=== PATIENT | female | born 1935 | race Caucasian/White ===

== ENCOUNTER 2025-03-19 13:01 | Outpatient (CLI) | payer MEDICARE, SELFPAY ==
--- OUTSIDE RECORDS SUMMARY | 2013-12-12 08:00 | XMS_ITS | Continuity of Care Document ---
Author Organization [facility] [place] [address] [place] [address] Phone Care Team Providers Care Rug Clipper Name Role Phone Sarabjit Murray MD Unavailable Unavailable Allergies, Adverse Reactions, Alerts Substance Reaction Status Criticality codeine Active No Information Medications Medication Instructions Dosage Effective Dates (start - stop) Status Comments BYSTOLIC (unknown strength) take 1 tablet by ORAL route every day Not Available - Active SPIRONOLACTONE (unknown strength) take 1 tablet by ORAL route every day Not Available - Active HYDROCHLOROTHIAZIDE (unknown strength) take 2 capsule by ORAL route every day Not Available - Active TIROSINT (unknown strength) Not Available - Active Procedures Procedure Date Eye Exam & Treatment Visual Field Examination(s) Office/outpatient Visit, Est Visual Field Examination(s) Corneal Pachymetry Eye Exam, New Patient Advance Directives Directive Yes / No Effective Date File Name No Information Encounters Encounter Description Practice Location Reason(s) For Visit Diagnoses Date Provider Providers Copied on Encounter [facility], [address], [place], [place], [id number], [place] tel:[phone] [facility] Professional Glaucoma (chief complaint) Dry eyeNevus of choroidSenile nuclear cataractOptic disc pathological cupping 201 4 Terri Whipple. [address] [facility], [address], [place], [place], [id number], [place]. tel:[phone] Referring Provider: Quinn Miranda, [address] [place] [address], [address]. tel:[phone] Office/outpa tient Visit, Est [facility], [address] [place], [place] [address], [place], [place], [id number], tel:[phone] SEC Man[place]inder [place] Professional No Information Nov-0 3-201 3 Wankum Sarabjit. [address], [id number], [place]. tel:[phone] Referring Provider: Quinn Miranda, [address] [place] [address], [address]. tel:[phone] [facility], [address] [place], [place] [address], [place], [id number], tel:[phone] [facility] Manjinder [place] Professional No Information 0 1-201 3 Wankum Sarabjit. [address] [facility] [place], [id number], [place]. tel:[phone] Referring Provider: Quinn Miranda, [address] [place] [address], [address]. tel:[phone] [facility], [address] [place], [place] [address], [place], [place], [id number], tel:[phone] SEC Manjinder [place] Professional No Information Aug-2 2-201 3 Wankum Sarabjit. [address] [facility] [place], [address], [place]. tel:[phone] Family History Family Member Type Diagnosis Age At Onset No Information Payers Payer name Insurance type Covered democrat ID Authormikea meek(s) [place] [id number] [facility] [id number] Social History Type Description Quantity Date Captured Comments Alcohol Use Details Unknown Caffeine Use Details Unknown Tobacco Use Status No Information Smoking Status No Information Sex Female Chief Complaint And Reason For Visit From encounter dated '12/12/2013 13:00'. Glaucoma (chief complaint) Reason For Referral Reason For Referral No Information History Of Present Illness Encounter Date Complaint History Of Prese nt Illness Glaucoma Patient presents for a complete IOP check with a VF. Patient uses AT prn. Patient doesn't think she sees as well. Functional Status Date Functional Assessmen t No Information Instructions Date Instruction Additional Infor marlysulaiman - RTC in 6 months fo r an IOP checkand OCT ON Related to See list of assessments above - Discussed cataract s - no treatment required at this time. Nevus OS stable. Suspicious optic nerve - will continue to monitor IOP. RTC in 6 months for an IOP checkand OCT ON. Educational materials provided:Cataract. Related to See list of assessments above - 1yr with vf cataracts cupping but nl iop a nd thick pachs and nl vf choroidal nevus os - rtc in 2mths for vf and pachs vit floaters - mal d symptoms tear/detach cupping cataracts - no tx needed choroidal nevus os Assessments Type Assessment Date assessment Dry eye assessment Nevus of choroid assessment Senile nuclear cataract 014 assessment Optic disc pathological cupping Patient Care Teams Name Effective Dates (start - stop) Status Members No Information
--- NOTE | ~2025-03-19 | XR_ITS ---
EXAMINATION: XR foot LT min 3V, 03/19/2025 13:08 CDT HISTORY: M79.672 - Pain in left foot COMPARISON: No comparisons available. Findings: No acute fracture or malalignment. No significant degenerative changes. Soft tissues unremarkable. Impression: No acute fracture or malalignment. Reviewed, dictated and finalized at location P. Impression: No acute fracture or malalignment.
--- OUTSIDE RECORDS SUMMARY | 2025-03-19 13:23 | XMS_ITS ---
Author Organization [facility] Address [address] [place] [address] Care Team Providers Care Artificial Intelligence Specialist Name Role Phone Zuly Fofana MD Unavailable [phone] Celeste TalbertM Unavailable [phone] He Lemus MD Unavailable [phone] Sameer Warner MD Unavailable [phone] Anita Beck MD Primary Care Prov ider Active Problems Problem Noted Date Diagnosed Date Encounter to establish care with new provider Assessment & Plan (11/09/2024 2:36 PM CDT): -Patient was previously seen Dr. Stevens, however is establishing care with new physician today. Arthritis of left foot 12/30/2023 Assessment & Plan (06/07/2024 4:11 PM ACCOUNTS RECEIVABLE ACCOUNTANT): - s/p MRI of left foot on 09/2023, initially saw Dr. Solis and then saw Dr. Talbert, told arthritis and got injections from time to time MRI Left foot wo contrast 09/2023 IMPRESSION: No evidence of a stress fracture. Moderate arthritic changes of the foot most pronounced at the navicular-cuneiform, medial cuneiform-intermediate, intermediate cuneiform-lateral cuneiform and middle cuneiform-2nd metatarsal base. Mild nonspecific subcutaneous edema dorsal aspect of the forefoot. Assessment & Plan (12/30/2023 2:54 PM CDT): - s/p MRI of left foot on 09/2023, initially saw Dr. oSlis and then saw Dr. Talbert, told arthritis and got injection which has resolved the pain MRI Left foot wo contrast 09/2023 IMPRESSION: No evidence of a stress fracture. Moderate arthritic changes of the foot most pronounced at the navicular-cuneiform, medial cuneiform-intermediate, intermediate cuneiform-lateral cuneiform and middle cuneiform-2nd metatarsal base. Mild nonspecific subcutaneous edema dorsal aspect of the forefoot. Stage 3b chronic kidney disease (CKD) 12/30/2023 Overview (06/07/2024): Follows with Nephrology Assessment & Plan (06/07/2024 4:09 PM ACCOUNTS RECEIVABLE ACCOUNTANT): - chronic condition, stable - avoid NSAIDs, Bactrim, Contrast, PPI - continue with low phos diet and low K diet - renally dose medications - hypertension is well controlled - establish with Nephrology Dr. Warner Lab Results Component Value Date CREATININE 1.43 (H) 04/10/2024 CREATININE 1.54 (H) 03/08/2024 CREATININE 1.39 (H) 01/12/2024 CREATININE 1.43 (H) 12/28/2023 Assessment & Plan (12/30/2023 4:21 PM CDT): - chronic condition - avoid NSAIDs, Bactrim, Contrast, PPI - continue with low phos diet and low K diet - renally dose medications - establish with Nephrology Dr. Warner Lab Results Component Value Date CREATININE 1.43 (H) 12/28/2023 CREATININE 1.37 (H) 11/25/2023 CREATININE 1.29 (H) 08/25/2023 CREATININE 1.37 (H) 07/01/2023 Renal cyst 09/17/2021 Assessment & Plan (12/30/2023 2:55 PM CDT): - noted on chart review - saw Urology and had MRI in past as shown below US renal 11/2022 IMPRESSION: Slightly small echogenic kidneys evidence of medical renal disease. Septated right upper pole renal cystic lesion 1.5 cm, previously 1.6 cm. Continued follow-up recommended. Echogenic focus lower pole right kidney 0.3 cm likely a calculus. MRI ABDOMEN W WO CONTRAST 01/2022 IMPRESSION: 1. Couple of right renal cystic lesions demonstrating heterogeneous hypointense T1 signal on the precontrast sequence and thin enhancing septations on the postcontrast sequences, and therefore concerning for mildly complicated renal cysts with proteinaceous/hemorrhagic debris and thin enhancing septations. Bosniak 2 F. follow-up MRI with renal protocol in 6 months is recommended to assess for stability as clinically indicated. 2. 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 Asymptomatic microscopic hematuria 09/17/2021 Low bone mass 10/08/2020 Assessment & Plan (06/07/2024 4:04 PM ACCOUNTS RECEIVABLE ACCOUNTANT): - chronic condition, stable status - on vitamin D supplementation - has been on reclast since 09/03/2018 - did it yearly until 10/2022 - never had a fracture - will likely start therapy next year - last DEXA 06/13 - lo wbon emass only -1.4, great - continue current management Assessment & Plan (12/30/2023 2:51 PM CDT): - chronic condition, stable status - on vitamin D supplementation - has been on reclast since 09/03/2018 - did it yearly until 10/2022 - never had a fracture - will likely start therapy next year - last DEXA was in 05/2022 - gets it every 2 years - continue current management Personal history of colonic polyps 07/09/2016 Mild cognitive disorder 07/09/2016 History of gout 01/10/2014 Assessment & Plan (11/09/2024 2:36 PM CDT): -Chronic, stable condition. Patient utilizes allopurinol and is in need of a refill. Will refill today. Assessment & Plan (06/07/2024 4:10 PM ACCOUNTS RECEIVABLE ACCOUNTANT): - hx of gout, well controlled - family hx of gout in father and brother - currently on Allopurinol 100 mg daily - most recent lab as shown below - continue current management Lab Results Component Value Date URICACID 4.4 12/28/2023 Assessment & Plan (12/30/2023 4:24 PM CDT): - hx of gout, well controlled - family hx of gout in father and brother - currently on Allopurinol 100 mg daily - recheck labs, order placed with results as shown below - continue current management Lab Results Component Value Date URICACID 4.4 12/28/2023 Chronic lymphoid leukemia in remission 4 Overview (06/07/2024): Follows with Hematology/Oncology Assessment & Plan (06/07/2024 4:09 PM ACCOUNTS RECEIVABLE ACCOUNTANT): - chronic, followed by Hematology/Oncology Dr. Lemus - having history of CLL since 2000 requiring no treatment. 06/24/2004 BMBx [place] [address] Barahona - monitored regularly by hematology - Continue current management Lab Results Component Value Date WBC 10.3 (H) 03/08/2024 HGB 12.5 03/08/2024 HCT 37.5 03/08/2024 MCV 96.9 (H) 03/08/2024 LABPLAT 229 03/08/2024 Assessment & Plan (12/30/2023 4:25 PM CDT): - chronic, followed by Hematology/Oncology Dr. Lemus - having history of CLL since 2000 requiring no treatment. 06/24/2004 BMBx [place] [address] Barahona - monitored regularly by hematology - Continue current management Lab Results Component Value Date WBC 12.4 (H) 12/28/2023 HGB 12.7 12/28/2023 HCT 37.6 12/28/2023 MCV 96.4 12/28/2023 LABPLAT 243 12/28/2023 Benign hypertension with CKD (chronic kidney disease) stage III 11/04/2013 Assessment & Plan (06/07/2024 4:06 PM ACCOUNTS RECEIVABLE ACCOUNTANT): Blood Pressure Management BP Readings from Last 3 Encounters: 06/07/24 130/80 03/08/24 125/65 12/30/23 130/70 Chronic condition Status - is adequately controlled. Current medications are: Losartan 50 mg daily, spironolactone 25x4 mg daily, indapamide 1.25 mg daily, --> change to Spironolactone 50 mg BID when time for refill Patient is compliant with medications. Patient denies any side effects or adverse side effects from the medication/s. Follow a low salt diet Monitor blood pressure regularly at home Continue current management unless change made above The ASCVD Risk score (Debi ADAM, et al., 2019) failed to calculate for the following reasons: The 2019 ASCVD risk score is only valid for ages 40 to 79 Lab Results Component Value Date LDLCALC 71 08/25/2023 Lab Results Component Value Date GLUCOSE 91 04/10/2024 CALCIUM 9.6 04/10/2024 SODIUM 133 (L) 04/10/2024 POTASSIUM 4.6 04/10/2024 CO2 19 (L) 04/10/2024 CHLORIDE 101 04/10/2024 BUNSER 35 (H) 04/10/2024 CREATININE 1.43 (H) 04/10/2024 Assessment & Plan (12/30/2023 2:44 PM CDT): Blood Pressure Management BP Readings from Last 3 Encounters: 12/30/23 130/70 09/03/23 120/59 04/20/23 130/78 Chronic condition Status - is adequately controlled. Current medications are: Losartan 50 mg daily, spironolactone 25x4 mg daily, indapamide 1.25 mg daily, Patient is compliant with medications. Patient denies any side effects or adverse side effects from the medication/s. Follow a low salt diet Monitor blood pressure regularly at home Continue current management unless change made above The ASCVD Risk score (Debi ADAM, et al., 2019) failed to calculate for the following reasons: The 2019 ASCVD risk score is only valid for ages 40 to 79 Lab Results Component Value Date LDLCALC 71 08/25/2023 Lab Results Component Value Date GLUCOSE 94 12/28/2023 CALCIUM 10.9 (H) 12/28/2023 SODIUM 136 12/28/2023 POTASSIUM 4.3 12/28/2023 CO2 22 12/28/2023 CHLORIDE 102 12/28/2023 BUNSER 37 (H) 12/28/2023 CREATININE 1.43 (H) 12/28/2023 Acquired hypothyroidism 11/04/2013 Assessment & Plan (06/07/2024 3:59 PM ACCOUNTS RECEIVABLE ACCOUNTANT): - chronic condition, stable status - currently on Levothyroxine 50 mcg daily - never had surgery, radiation - continue current management - recheck labs, order placed Lab Results Component Value Date TSH 2.98 08/25/2023 Assessment & Plan (12/30/2023 2:45 PM CDT): - chronic condition, stable status - currently on Levothyroxine 50 mcg daily - never had surgery, radiation - continue current management - recheck labs, order placed Lab Results Component Value Date TSH 2.98 08/25/2023 Current Treatment and Therapy Plans No current plan information found. Past Treatment and Therapy Plans Resolved Problems Problem Noted Date Diagnosed Date Resolved Date Urinary tract infection without hematuria 09/17/2021 12/30/2023 Nonspecific abnormal finding in stool contents 10/03/2018 12/30/2023 Overview (10/03/2018): Added automatically from request for surgery [id number] Calculus of gallbladder with out cholecystitis without obstruction 09/07/2017 12/30/2023 Overview (09/07/2017): Added automatically from request for surgery [id number] Assessment & Plan (09/17/2017 3:58 PM CDT): The procedure along with the risks and benefits were explained to the patient to which she agreed. Will plan for lap frederick. Healthcare maintenance 01/13/201712/29 Medication management 01/13/20172023 Hypertensive CKD (chronic kidney disease) 01/13/2017 12/30/2023 Osteopenia 07/09/2016 12/30/2023 Osteoarthritis of knee 07/09/201612/29 Abnormal findings on diagnos tic imaging of breast 11/28/2014 12/30/2023 Disorder of bone and cartilage 11/04/2013 12/30/2023
--- OUTSIDE RECORDS SUMMARY | 2025-03-19 13:23 | XMS_ITS | Encounter Summary ---
Author Organization [facility] Address [address] [place] [address] Care Team Providers Care Christmas Bell Ringer Name Role Phone Quinn Savage MD Primary Care Provider + Zuly Fofana MD Unavailable [phone] Shiva Stevens MD Primary Care Provider Celeste Talbert DPM Unavailable [phone] He Lemus MD Unavailable [phone] Sameer Warner MD Unavailable [phone] Anita Beck MD Primary Care Prov ider Reason for Visit * Reason Onset Date Comments Scheduling Appointments 01/31/2020 Called f or DEXA appointment Encounter Details Date Type Department Care Team (Late st Contact Info) Description 01/31/2020 Telephone [facility] [address] [place] [phone] Sara Baires RT Scheduling Appointments (Called for DEXA appointment) Social History Tobacco Use Types Packs/Day Years Used Date Smoking Tobacco: Never Smokeless Tobacco: Never Alcohol Use Standard Drinks/Week Comments No 0 (1 standard drink = 0.6 oz pur e alcohol) Comments No Sex and Gender Information Value Date Recorded Sex Assigned at Not on file Legal Sex Female 11:51 PM AUDOGRAPH OPERATOR Gender Identity Not on file Sexual Orientation Not on file Occupation Industry Job Start Date Job End Date N/A Not on file Not on file Not on file documented as of this encounter Plan of Treatment Not on file documented as of this encounter Visit Diagnoses Not on filedocumented in this encounter Additional Health Concerns Infection Onset Date Last Indicated Resolved Time COVID: Suspected 07/04/2024 07/04/2024 07/04/2024 11:01 AM AUDOGRAPH OPERATOR documented as of this encounter Care Teams Christmas Bell Ringer Relationship Specialty Start Date End Date Quinn Savage MD [address] [place] [address] PCP - General 09/18/16 12/29/23 Shiva Stevens MD [address] [facility] [address] [place] [address] PCP - General Family Medicine 12/30/23 11/08/24 Anita Beck MD [address] [place] [address] [address] [place] [address] PCP - General Family Medicine 11/09/24 04/24/25 Zuly Fofana MD [address] [facility] [address] [place] [address] Referring Physician Dermatology 12/30/23 Celeste Talbert DPM [address] [place] [address] [id number] Consulting Physician Foot and Ankle Surg 12/30/23 He Lemus MD [address] [place] [address] [address] [place] [address] Consulting Physician Hematology and Oncology 12/30/23 Sameer Warner MD [address] [place] [address] [address] [place] [address] Consulting Physician Nephrology 12/30/23 documented as of this encounter
--- OUTSIDE RECORDS SUMMARY | 2025-03-19 13:23 | XMS_ITS | Clinical Summary ---
Author Organization [facility] Address [address] [place] [address] Phone Care Team Providers Care Academic Vice President Name Role Phone Unavailable Primary Care Provider Unavailabl e Social History Tobacco Use Types Packs/Day Years Used Date Smoking Tobacco: Never Assessed Comments Unknown Sex and Gender Information Value Date Recorded Sex Assigned at Not on file Legal Sex Female 4:16 AM PEG DRIVER Gender Identity Not on file Sexual Orientation Not on file Plan of Treatment Health Maintenance Due Date Last Done Comments DTAP/TDAP/TD VACCINES (1 - Tdap) 1955 PNEUMOCOCCAL VACCINE 50+ YEARS (1 of 1 - PCV) 04/09/19 86 ZOSTER VACCINE (1 of 2) 1986 OSTEOPOROSIS SCREENING 2001 RSV VACCINE (60+ or ) (1 - 1-dose 75+ series) 2011 INFLUENZA VACCINE (#1) 2025 Insurance MEDICARE PART A AND B [employer] PPO [facility]
--- OUTSIDE RECORDS SUMMARY | 2025-03-19 13:23 | XMS_ITS | Encounter Summary ---
Author Organization [facility] Address [address] [place] [address] Phone Care Team Providers Care Registration Clerk Name Role Phone Quinn Savage MD Primary Care Provider + Zuly Fofana MD Unavailable [phone] Shiav Stevens MD Primary Care Provider Celeste TalbertM Unavailable [phone] He Lemus MD Unavailable [phone] Sameer Warner MD Unavailable [phone] Anita Beck MD Primary Care Prov ider Encounter Details Date Type Department Care Team (Late st Contact Info) Description 07/08/2017 Orders Only [facility] Provider, MD Marcia [address] [place] [id number] Social History Tobacco Use Types Packs/Day Years Used Date Smoking Tobacco: Never Smokeless Tobacco: Never Alcohol Use Standard Drinks/Week Comments No 0 (1 standard drink = 0.6 oz pur e alcohol) Comments Unknown Sex and Gender Information Value Date Recorded Sex Assigned at Not on file Legal Sex Female 11:51 PM CORK INSULATION SETTER Gender Identity Not on file Sexual Orientation Not on file documented as of this encounter Plan of Treatment Not on file documented as of this encounter Procedures Procedure Name Priority Date/Time Associated Diagnosis Comments DISCHARGE LABORATORY CUMULATIVE REPORT 07/08/2017 12:00 AM CORK INSULATION SETTER documented in this encounter Results * DISCHARGE LABORATORY CUMULATIVE REPORT (07/08/2017 12:00 AM CORK INSULATION SETTER) Narrative 07/08/2017 12:00 AM CORK INSULATION SETTER Ordered by an unspecified provider. us Historical Provider LAB BLOOD ORDERABLES Nicol l Result documented in this encounter Visit Diagnoses Not on filedocumented in this encounter Additional Health Concerns Infection Onset Date Last Indicated Resolved Time COVID: Suspected 07/04/2024 07/04/2024 07/04/2024 11:01 AM CORK INSULATION SETTER documented as of this encounter Care Teams Registration Clerk Relationship Specialty Start Date End Date Quinn Savage MD [address] [place] [address] PCP - General 09/18/16 12/29/23 Shiva Stevens MD [address] [facility] [address] [place] [address] PCP - General Family Medicine 12/30/23 11/08/24 Anita Beck MD [address] [place] [address] [address] [place] [address] PCP - General Family Medicine 11/09/24 04/24/25 Zuly Fofana MD [address] [facility] [address] [place] [address] Referring Physician Dermatology 12/30/23 Celeste Talbert DPM [address] [place] [address] Consulting Physician Foot and Ankle Surg 12/30/23 He Lemus MD [address] [facility] [address] [place] [address] Consulting Physician Hematology and Oncology 12/30/23 Sameer Warner MD [address] [facility] [address] [address] Consulting Physician Nephrology 12/30/23 documented as of this encounter
--- OUTSIDE RECORDS SUMMARY | 2025-03-19 13:23 | XMS_ITS | Encounter Summary ---
Author Organization [employer] Address 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
--- OUTSIDE RECORDS SUMMARY | 2025-03-19 13:23 | XMS_ITS | Clinical Summary ---
Author Organization [facility] Address [address] [place] [id number] Care Team Providers Care Traffic Safety Administrator Name Role Phone Zuly Fofana MD Unavailable [phone] Celeste TalbertM Unavailable [phone] He Lemus MD Unavailable [phone] Sameer Warner MD Unavailable [phone] Anita Beck MD Primary Care Prov ider Allergies Active Allergy Reactions Criticality Noted Date Comments Codeine Other (See comments) Low Causes Numbness, Medications cholecalciferol (VITAMIN D-3) 2,000 unit tablet 1 tablet (2,000 Units total) daily Active ketoconazole (NIZORAL) 2 % cream Apply under breasts BID 60 g 3 04/26/2019 Active hydrocortisone 2.5 % cream Apply under breasts BID 28 g 3 04/26/2019 Active cyanocobalamin (Vitamin B-12) 100 mcg tabletIndicatio ns:Prevention of Vitamin B12 Deficiency Take 1 tablet (100 mcg total) by mouth daily Active d-mannose powder Take by mouth Active levothyroxine (SYNTHROID) 50 mcg tablet Take 1 tablet (50 mcg total) by mouth daily 90 tablet 3 02/24/2024 Active albuterol-budes onide 90-80 mcg/actuation HFA aerosol inhaler Inhale 2 puffs every 6 (six) hours as needed (cough attack) 10.7 g 09/05/2024 Active budesonide-form oteroL (SYMBICORT) 160-4.5 mcg/actuation inhaler Inhale 2 puffs 2 (two) times a day for 14 days Rinse mouth with water after use. Do not swallow. 10.2 g 09/08/2024 Active allopurinoL (ZYLOPRIM) 100 mg tablet Take 1 tablet (100 mg total) by mouth daily 90 tablet 3 11/15/2024 Active indapamide (LOZOL) 1.25 mg tablet Take 1 tablet (1.25 mg total) by mouth every morning 90 tablet 2 12/20/2024 Active spironolactone (ALDACTONE) 50 mg tablet Take 1 tablet (50 mg total) by mouth 2 (two) times a day 180 tablet 1 01/19/2025 Active losartan (COZAAR) 50 mg tablet TAKE 1 TABLET BY MOUTH EVERY DAY 90 tablet 1 01/26/2025 Active Active Problems Problem Noted Date Diagnosed Date Encounter to establish care with new provider Assessment & Plan (11/09/2024 2:36 PM CDT): -Patient was previously seen Dr. Stevens, however is establishing care with new physician today. Arthritis of left foot 12/30/2023 Assessment & Plan (06/07/2024 4:11 PM DEALER SALES MANAGER): - s/p MRI of left foot on [...] Nephrology Assessment & Plan (06/07/2024 4:09 PM DEALER SALES MANAGER): - chronic condition, stable - avoid NSAIDs, [...] 10/08/2020 Assessment & Plan (06/07/2024 4:04 PM DEALER SALES MANAGER): - chronic condition, stable status - on [...] today. Assessment & Plan (06/07/2024 4:10 PM DEALER SALES MANAGER): - hx of gout, well controlled - [...] Hematology/Oncology Assessment & Plan (06/07/2024 4:09 PM DEALER SALES MANAGER): - chronic, followed by Hematology/Oncology Dr. Lemus [...] 11/04/2013 Assessment & Plan (06/07/2024 4:06 PM DEALER SALES MANAGER): Blood Pressure Management BP Readings from Last [...] 11/04/2013 Assessment & Plan (06/07/2024 3:59 PM DEALER SALES MANAGER): - chronic condition, stable status - currently [...] Results Component Value Date TSH 2.98 08/25/2023 Resolved Problems Problem Noted Date Diagnosed Date Resolved Date Urinary tract infection without hematuria 09/17/2021 12/30/2023 Nonspecific abnormal finding in stool contents 10/03/2018 12/30/2023 Overview (10/03/2018): Added automatically from request for surgery [id number] Calculus of gallbladder with out cholecystitis without obstruction 09/07/2017 12/30/2023 Overview (09/07/2017): Added automatically from request for surgery [id number] Assessment & Plan (09/17/2017 3:58 PM CDT): [...] Disorder of bone and cartilage 11/04/2013 12/30/2023 Encounters Date Type Department Care Team Description 02/13/2025 Telephone [facility] at [address] [place] [address] Anita Beck MD 01/17/2025 Telephone [facility] at [address] [place] [address] Anita Beck MD Med Refill 12/21/2024 11:57 AM CDT - 12/21/2024 11:59 PM CDT Hospital Encounter [facility] at [address] [address] Acute left-sided low back pain without sciatica Discharge Disposition: Discharge to home or self care 12/21/2024 11:37 AM CDT - 12/21/2024 11:59 PM CDT Hospital Encounter [address] [address] Low back pain, unspecified back pain laterality, unspecified chronicity, unspecified whether sciatica present; UTI symptoms Discharge Disposition: Discharge to home or self care 12/21/2024 11:15 AM CDT Office Visit [facility] at [address] [place] [phone] Kortney Arnett NP Low back pain, unspecified back pain laterality, unspecified chronicity, unspecified whether sciatica present (Primary Dx); UTI symptoms; Acute left-sided low back pain without sciatica 12/21/2024 Results Follow-Up [facility] at [address] [place] [phone] Kortney Arnett, FORTINO XR Spine Thoracic 3 Vw, XR Spine Lumbar 2 or 3 Views, Urine culture Urine, clean voided from Last 3 Months Immunizations Immunization Administration Dates Next Due Influenza, Quad, Adjuvantate d, Intramuscular 02/20/2020,02/20/2020 Influenza, Quadrivalent, Hig h Dose, Preservative Free, Intrr 04/03/2023,03/17/2022,02/26/2021 Influenza, Split 03/25/2011,03/28/2010 Influenza, Trivalent, High D ose, Split, Preservative Free, Intramuscular 04/13/2017,03/26/2016,04/18/2015,03/28,03/30/2013 Influenza, Trivalent, IM (MDV) 04/16/2009,2007,05/18/2007 Influenza, Unspecified 03/20/2024 Moderna SARS-CoV-2 Monovalen t Vaccination (12+ YRS) 09/03/2020,07/24/2020 Pneumococcal Conjugate PCV 13 07/04/2015 Pneumococcal Polysaccharide PPV23 05/07/2009 Td, adsorbed 08/13/2009 ZOSTER LIVE 06/15/2008 Surgical History Surgery Date Site/Laterality Comments OTHER SURGICAL HISTORY multiple back surgeries HAND SURGERY 06/21/2006 - 06/20/2007 left hand surgery OTHER SURGICAL HISTORY L4-5 laminectomy--- has had total of 3 surgeries, had fusion. CHOLECYSTECTOMY 09/13/2017 Laparoscopic Cholecystectomy OOPHORECTOMY HYSTERECTOMY 06/21/1977 - 06/20/1978 AUB - DENISE-BSO DILATION AND CURETTAGE OF UTERUS x 3, AUB EXPLORATORY LAPAROTOMY AUB - COLONOSCOPY 08/02/2012 POLYPECTOMY APPENDECTOMY SPINE SURGERY Medical History Medical History Date Comments Hx Other Medical 01-ONC Hx Other Medical hyperplastic po lyps ' Hx Other Medical 02-NECKTIE TURNER Hx Other Medical 2008 + [place] (DS) Medication monitoring encounter PONV (postoperative nausea and vomiting) Hypertension Hypothyroidism CLL (chronic lymphocytic leukemia) Gout Colon polyp Cataract Chronic kidney disease Arthritis Family History Medical History Relation Name Comments Alzheimer's disease Brother 1 Adriel Guy Colon cancer Brother 1 Adriel Guy Cancer -colon ; Cancer Brother 2 Jose Guy Heart attack Brother 2 Jose Guy Myocardial infarction; Arthritis Father Cristine Guy Heart attack Father Cristine Guy Heart disease Father Cristine Guy Heart disease; Hypertension Father Cristine Guy Hypertension; Breast cancer Neg Hx Ovarian cancer Neg Hx Thyroid cancer Neg Hx Relation Name Status Comments Brother 1 Adriel Guy Brother 2 Jose Guy Father Cristine Guy (Age 93) Mother (Age 98) Social History Tobacco Use Types Packs/Day Years Used Date Smoking Tobacco: Never Smokeless Tobacco: Never Tobacco Cessation:Counseling Given: Not Answered Alcohol Use Standard Drinks/Week Comments No 0 (1 standard drink = 0.6 oz pur e alcohol) AUDIT-C Answer Date Recorded Q1: How often do you have a drink containing alcohol? Never 09/05/2024 Q2: How many drinks containi ng alcohol do you have on a typical day when you are drinking? Patient does not drink Q3: How often do you have si x or more drinks on one occasion? Never 09/05/2024 PHQ-2 Answer Date Recorded PHQ-2 Total Score (If total score is 3 or more points, staff should administer the PHQ-9) 0 11/09/2024 Comments No Sex and Gender Information Value Date Recorded Sex Assigned at Not on file Legal Sex Female 11:51 PM DEALER SALES MANAGER Gender Identity Not on file Sexual Orientation Not on file Occupation Industry Job Start Date Job End Date N/A Not on file Not on file Not on file Obstetrics History Para Term AB IAB SAB Ectopic Multiple Livin g Live Births 2 2 2 Date Outcome GA Total Labor Labor/2nd/3rd Weight Sex Type Anes PTL Priyanka A1 A5 Name Clin Term Term Last Filed Vital Signs Vital Sign Reading Time Taken Comments Blood Pressure 120/60 12/21/2024 11:12 AM CDT Pulse 105 12/21/2024 11:12 AM CDT Temperature 37.2 C (99 F) 12/21/2024 11:12 AM CDT Respiratory Rate 20 12/21/2024 11:12 AM CDT Oxygen Saturation 97% 12/21/2024 11:12 AM CDT Inhaled Oxygen Concentration - - Weight 64 kg (141 lb) 12/21/2024 11:12 AM CDT Height 157.5 cm (5' 2) 12/21/2024 11:12 AM CDT Body Mass Index 25.79 12/21/2024 11:12 AM CDT Plan of Treatment Health Maintenance Due Date Last Done Comments Hepatitis B Screening 1953 Well Visit 65+ 2001 Zoster Vaccine (1 of 2) 08/10/2008 06/15/2008 DTaP/Tdap/Td Vaccine (1 - Tdap) 08/14/2009 0 Colon Cancer Screening-Colonoscopy 11/02/2023 11/01/2018, 08/02/2012, 08/02/2012, Additional history exists Covid-19 Vaccine (6 - 2024-2 6 season) 2025 08/12/2022, 12/19/2021, 04/24/2021, Additional history exists Influenza Vaccine (#1) 2025 , 03/20/2024, 04/03/2023, Additional history exists Breast Cancer Screening-Mammogram 05/31/2025 05/31/2024, 04/05/2023, 04/03/2022, Additional history exists Fall Risk Assessment 07/04/2025 07/04/2024, 06/07/2024, 12/30/2023, Additional history exists Depression Screening 11/09/2025 11/09/2024, 07/04/2024, 06/07/2024, Additional history exists Osteoporosis Screening-Bone Density Scan 05/31/2026 05/31/2024, 02/01/2020, 07/15/2015 Pneumococcal vaccine 65+ Completed 07/04/2015, 04/21 Colon Cancer Screening-CT Colonography Discontinued 11/01/2018, 08/02/2012, 08/02/2012, Additional history exists Colon Cancer Screening-DNA Stool Discontinued 11/01/2018, 08/02/2012, 08/02/2012, Additional history exists Colon Cancer Screening-FIT Discontinued 11/01, 08/02/2012, 08/02/2012, Additional history exists Colon Cancer Screening-Sigmoidoscopy Discontinued 11/01/2018, 08/02/2012, 08/02/2012, Additional history exists Procedures Procedure Name Priority Date/Time Associated Diagnosis Comments XR SPINE LUMBAR 2 OR 3 VIEWS Schedule JUDITH, Read JUDITH (Appt Today, Awaiting Results) 12/21/2024 12:22 PM CDT Acute left-sided low back pain without sciatica XR SPINE THORACIC 3 VIEWS Schedule JUDITH, Read JUDITH (Appt Today, Awaiting Results) 12/21/2024 12:22 PM CDT Acute left-sided low back pain without sciatica URINE CULTURE Routine 12/21/2024 11:37 AM CDT Low back pain, unspecified back pain laterality, unspecified chronicity, unspecified whether sciatica present UTI symptoms POCT URINALYSIS DIPSTICK Routine 12/21/2024 11:33 AM CDT Low back pain, unspecified back pain laterality, unspecified chronicity, unspecified whether sciatica present DEXA AXIAL SKELETON BONE DENSITY 1 OR MORE SITES Schedule Routine, Read Routine (OP Routine) 05/31/2024 10:57 AM DEALER SALES MANAGER Age related osteoporosis, unspecified pathological fracture presence SCREENING MAMMOGRAM BILATERAL W RENITA Schedule Routine, Read Routine (OP Routine) 05/31/2024 10:51 AM DEALER SALES MANAGER Encounter for screening mammogram for malignant neoplasm of breast COLONOSCOPY 11/01/2018 9:56 AM CDT from Last 3 Months or Most Recently Relevant to Health Maintenance Results * XR Spine Lumbar 2 or 3 Views (12/21/2024 12:22 PM CDT) Anatomical Region Laterality Modality Spine N/A Computed Radiogr aphy 12/21/2024 3:02 PM CDT Narrative 12/21/2024 3:07 PM CDT EXAM DESCRIPTION: 1. XR SPINE LUMBAR 2 OR 3 VIEWS; XR SPINE THORACIC 3 VIEWS REASON FOR STUDY: Left-sided back Left sided mid back pain x 3 days Pain is worse when taking in a deep breath NKI Hx of 3 prior back surgeries ; FINDINGS: Three views lumbar spine and three views thoracic spine submitted with comparison 09/05/2024, 03/14/2019. Thoracic spine: No acute fracture. 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 Arterial atherosclerosis is present. Lumbar spine: No acute fracture. Moderate rotary dextroscoliosis of the lumbar spine. L4-L5 combined anterior posterior spinal fusion is present. Severe T12-L4 and L5-S1 degenerative disc disease. Multilevel lumbar facet osteoarthritis. Surgical clips are present. IMPRESSION: 1. 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 2. L4-L5 combined anterior posterior spinal fusion. 3. Severe T12-L4 and L5-S1 degenerative disc disease with multilevel lumbar facet osteoarthritis. THIS IS AN ELECTRONICALLY VERIFIED FINAL REPORT 12/21/2024 3:07 PM - Electronically signed by Ricky House M.D. MF: [email or web address] Report ID: [id number] Reading Location: [id number] Procedure Note Ricky House MD - 12/21/2024 EXAM DESCRIPTION: 1. XR SPINE LUMBAR 2 OR 3 VIEWS; XR SPINE THORACIC 3 VIEWS REASON FOR STUDY: Left-sided back Left sided mid back pain x 3 days Pain is worse when taking in a deepbreath NKI Hx of 3 prior back surgeries ; FINDINGS: Three views lumbar spine and three views thoracic spine submitted with comparison 09/05/2024, 03/14/2019. Thoracic spine: No acute fracture. 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 Arterial atherosclerosis is present. Lumbar spine: No acute fracture. Moderate rotary dextroscoliosis of the lumbar spine. L4-L5 combined anterior posterior spinal fusion is present. Severe [id number]-[id number] L5-S1 degenerative disc disease. Multilevel lumbar facet osteoarthritis. Surgical clips are present. IMPRESSION: 1. Moderate to severe multilevel midthoracic degenerative discdisease. 2. L4-L5 combined anterior posterior spinal fusion. 3. Severe T12-L4 and L5-S1 degenerative disc disease with multilevellumbar facet osteoarthritis. THIS IS AN ELECTRONICALLY VERIFIED FINAL REPORT 12/21/2024 3:07 PM - Electronically signed by Ricky House M.D. MF: [email or web address] Report ID: [id number] Reading Location: [place] [address] Kortney Arnett NP IMG XR PROCEDURES Final Re sult * XR Spine Thoracic 3 Vw (12/21/2024 12:22 PM CDT) Anatomical Region Laterality Modality Spine N/A Computed Radiogr aphy 12/21/2024 3:02 PM CDT Narrative 12/21/2024 3:07 PM CDT EXAM DESCRIPTION: 1. XR SPINE LUMBAR 2 OR 3 VIEWS; XR SPINE THORACIC 3 VIEWS REASON FOR STUDY: Left-sided back Left sided mid back pain x 3 days Pain is worse when taking in a deep breath NKI Hx of 3 prior back surgeries ; FINDINGS: Three views lumbar spine and three views thoracic spine submitted with comparison 09/05/2024, 03/14/2019. Thoracic spine: No acute fracture. 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 Arterial atherosclerosis is present. Lumbar spine: No acute fracture. Moderate rotary dextroscoliosis of the lumbar spine. L4-L5 combined anterior posterior spinal fusion is present. Severe T12-L4 and L5-S1 degenerative disc disease. Multilevel lumbar facet osteoarthritis. Surgical clips are present. IMPRESSION: 1. 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 2. L4-L5 combined anterior posterior spinal fusion. 3. Severe T12-L4 and L5-S1 degenerative disc disease with multilevel lumbar facet osteoarthritis. THIS IS AN ELECTRONICALLY VERIFIED FINAL REPORT 12/21/2024 3:07 PM - Electronically signed by Ricky REED: DEREK Report ID: [id number] Reading Location: [id number] Procedure Note Ricky House MD - 12/21/2024 EXAM DESCRIPTION: 1. XR SPINE LUMBAR 2 OR 3 VIEWS; XR SPINE THORACIC 3 VIEWS REASON FOR STUDY: Left-sided back Left sided mid back pain x 3 days Pain is worse when taking in a deepbreath NKI Hx of 3 prior back surgeries ; FINDINGS: Three views lumbar spine and three views thoracic spine submitted with comparison 09/05/2024, 03/14/2019. Thoracic spine: No acute fracture. 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 Arterial atherosclerosis is present. Lumbar spine: No acute fracture. Moderate rotary dextroscoliosis of the lumbar spine. L4-L5 combined anterior posterior spinal fusion is present. Severe [id number] L5-S1 degenerative disc disease. Multilevel lumbar facet osteoarthritis. Surgical clips are present. IMPRESSION: 1. Moderate to severe multilevel midthoracic degenerative discdisease. 2. L4-L5 combined anterior posterior spinal fusion. 3. Severe T12-L4 and L5-S1 degenerative disc disease with multilevellumbar facet osteoarthritis. THIS IS AN ELECTRONICALLY VERIFIED FINAL REPORT 12/21/2024 3:07 PM - Electronically signed by Ricky REED: DEREK Report ID: [id number] Reading Location: [id number] Kortney Arnett NP IMG XR PROCEDURES Final Re sult * Urine culture Urine, clean voided (12/21/2024 11:37 AM CDT) Report Final Report: Less than 100,000 colonies/mL (clinically insignificant growth based on current clinical standards) Comment:Testing performed by : [facility], [address] [place] [address] Organism (CLINICALLY INSIGNIFICANT GROWTH [place] Urine, clean voided 12/21/2024 11:37 AM CDT 12/21/2024 10:29 PM CDT Narrative GENO BECK - 12/23/2024 7:26 AM CDT Testing performed by [facility] ([phone]) Kortney Arnett NP LAB MICROBIOLOGY - GENERAL ORDERABLES Final Result [facility] [id number] Department [place] [address] * (ABNORMAL) POCT urinalysis dipstick (12/21/2024 11:33 AM CDT) Color, Urine, POC Dark Yellow Clarity, ur, POC Clear Clear Glucose, ur, POC Negative Negative Bilirubin, ur, POC Negative Negative Ketones, ur, POC Negative Negative Specific [place], POC 1.015 1.003 - 1.030 Blood, ur, POC Negative Negative pH, ur, POC 6.5 5.0 - 8.0 Protein, ur, POC 30.(A) Negative Urobilinogen, urine, POC 1.0 0.2 - 1.0 mg/dL Nitrite, ur, POC Negative Negative Leukocytes, ur, POC Small(A) Negative Lot Number [id number] Urine 12/21/2024 11:3 3 AM CDT Kortney Arnett NP POINT OF CARE TEST ORDERAB LES Final Result * Dexa Axial Skeleton Bone Density 1 Or 2 Site (05/31/2024 10:57 AM DEALER SALES MANAGER) Anatomical Region Laterality Modality Body N/A Other 05/31/2024 5:57 PM DEALER SALES MANAGER Narrative 05/31/2024 6:07 PM DEALER SALES MANAGER EXAM DESCRIPTION: DEXA AXIAL SKELETON BONE DENSITY 1 OR MORE SITES REASON FOR STUDY: 89 y/o year old F with given history of: known osteoporosis SCREENING. 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 FINDINGS: AP LUMBAR SPINE L1-L3: Total BMD is 1.376 g/cm2 T-score is 3.3 LEFT HIP: Total BMD is 0.859 g/cm2 T-score is -0.7 Femoral neck BMD is 0.699 g/cm2 T-score is -1.4 FRAX: 10 year risk for a major osteoporotic fracture is 15 %, 10 year risk for a hip fracture is 4.4 % IMPRESSION: Low Bone Mass. REFERENCE: Bone mineral density: T-Score: Normal (T-score above or = -1.0) Low bone mass (T-score between -1.0 and -2.5) replaces the previously used term osteopenia Osteoporosis (T-score = or below -2.5) Z-Score: Within the expected range for age (Z-score above -2.0) Below the expected range for age (Z-score is -2.0 or below) Please see below follow up recommendations. Medical evaluation for secondary causes of low bone mineral density may be appropriate. FRAX is a World Health Organization validated fracture risk assessment tool that calculates a person's 10 year probability of a major osteoporosis related fracture and hip fracture. According to the National Osteoporosis Foundation guidelines, postmenopausal women and men age 50 or older with low bone mass and a 10 year probability of a major osteoporosis related fracture = or greater than 20% or a 10 year probability of a hip fracture = or greater than 3% should be considered for pharmacological treatment for the prevention of osteoporosis. For further information, including treatment recommendations, please refer to the 2019 ISCD Official Positions (http://www.iscd.org) and the NOF's Clinician's Guide to Prevention and Treatment of Osteoporosis (http://www.nof.org/professionals/clinical-guidelines) THIS IS AN ELECTRONICALLY VERIFIED FINAL REPORT 05/31/2024 6:07 PM - Electronically signed by Ricky House M.D. MF: DEREK Report ID: [id number] Reading Location: [place] [address] Procedure Note Ricky House MD - 05/31/2024 EXAM DESCRIPTION: DEXA AXIAL SKELETON BONE DENSITY 1 OR MORE SITES REASON FOR STUDY: 89 y/o year old F with given history of: known osteoporosis SCREENING. 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 FINDINGS: AP LUMBAR SPINE L1-L3: Total BMD is 1.376 g/cm2 T-score is 3.3 LEFT HIP: Total BMD is 0.859 g/cm2 T-score is -0.7 Femoral neck BMD is 0.699 g/cm2 T-score is -1.4 FRAX: 10 year risk for a major osteoporotic fracture is 15 %, 10 year risk for ahip fracture is 4.4 % IMPRESSION: Low Bone Mass. REFERENCE: Bone mineral density: T-Score: Normal (T-score above or = -1.0) Low bone mass (T-score between -1.0 and -2.5) replaces thepreviously used term osteopenia Osteoporosis (T-score = or below -2.5) Z-Score: Within the expected range for age (Z-score above -2.0) Below the expected range for age (Z-score is -2.0 or below) Please see below follow up recommendations. Medical evaluation forsecondary causes of low bone mineral density may be appropriate. FRAX is a World Health Organization validated fracture risk assessmenttool that calculates a person's 10 year probability of a major osteoporosisrelated fracture and hip fracture. According to the National OsteoporosisFoundation guidelines, postmenopausal women and men age 50 or older with low bonemass and a 10 year probability of a major osteoporosis related fracture = or greater than 20% or a 10 year probability of a hip fracture = or greaterthan 3% should be considered for pharmacological treatment for the preventionof osteoporosis. For further information, including treatment recommendations, please referto the 2019 ISCD Official Positions (http://www.iscd.org) and the NOF's Clinician's Guide to Prevention and Treatment of Osteoporosis (http://www.nof.org/professionals/clinical-guidelines) THIS IS AN ELECTRONICALLY VERIFIED FINAL REPORT 05/31/2024 6:07 PM - Electronically signed by Ricky House M.D. MF: DEREK Report ID: [id number] Reading Location: [place] [address] Shiva Stevens MD [facility] DXA PROCEDURES Nicol l Result * SCREENING MAMMOGRAM BILATERAL W RENITA (05/31/2024 10:51 AM DEALER SALES MANAGER) Anatomical Region Laterality Modality Breast Bilateral Mammography 05/31/2024 1:36 PM DEALER SALES MANAGER Impressions 05/31/2024 1:36 PM DEALER SALES MANAGER There is no mammographic evidence to suggest malignancy. The patient may continue screening mammography as per ACR guidelines. FINAL ASSESSMENT: BI-RADS Category 1: Negative. Electronically signed by: Oneyda Farley M.D. Narrative 05/31/2024 1:36 PM DEALER SALES MANAGER EXAMINATION: BILATERAL SCREENING MAMMOGRAM WITH TOMOGRAPHY HISTORY: Screening. COMPARISON(S): 2022, 2021, and 2020 TECHNIQUE: Full-field 2D images and digital tomosynthesis images were obtained. CAD was utilized. BREAST PARENCHYMAL COMPOSITION: There are scattered areas of fibroglandular density. FINDINGS: There are no suspicious masses. No suspicious calcifications are seen. There is no unexplained architectural distortion. There is no skin thickening seen. There are no mammographically abnormal lymph nodes seen in the axillae or elsewhere. Shiva Stevens MD IM MAMMO PROCEDURES Fi nal Result * COLONOSCOPY (11/01/2018 9:56 AM CDT) Anatomical Region Laterality Modality Other Narrative Procedure Note Vianey Hart MD - 11/01/2018 9:56 AM CDT [facility] Patient Name: Alexandra Douglass Procedure Date: 11/01/2018 9:56 AM Date of : 1935 Admit Type: Outpatient Age: 83 Gender: Female Attending MD: Vianey Hart M.D. Room: [facility] ENDOSCOPY ROOM 1 Note Status: Finalized Patient Profile: 83 WF, brother had colon cancer, screening. Procedure: Colonoscopy Indications: Screening in patient at increased risk: Familyhistory of 1st-degree relative with colorectal cancer before age 60 years, Last colonoscopy: July 2012 Referring MD: Quinn Savage M.D. Providers: Vianey Hart M.D. Impression: - Two 4 to 6 mm polyps in the proximal descending colon, removed with a jumbo cold forceps. Resectedand retrieved. - Internal hemorrhoids. Recommendation: - Await pathology results. - Repeat colonoscopy in 3 - 5 years forsurveillance. Medicines: Monitored Anesthesia Care Complications: No immediate complications. Estimated Blood Loss: Estimated blood loss: none. Procedure: Pre-Anesthesia Assessment: - Prior to the procedure, a History and Physical was performed, and patient medications and allergieswere reviewed. The patient's tolerance of previous anesthesia was also reviewed. The risks and benefitsof the procedure and the sedation options and riskswere discussed with the patient. All questions were answered, and informed consent was obtained. Prior Anticoagulants: The patient has taken no previous anticoagulant or antiplatelet agents. ASA Grade Assessment: II - A patient with mild systemicdisease. After reviewing the risks and benefits, the patientwas deemed in satisfactory condition to undergo the procedure. The benefits, risks and alternatives of theprocedure and sedation were discussed and informed consent was obtained. All questions were answered. Please referto the signed informed consent document in the medical record. The scope was passed under direct vision.The Pediatric Colonoscope PCF-H190L [id number] was introduced through the anus and advanced to the the cecum, identified by appendiceal orifice andileocecal valve. The colonoscopy was performed without difficulty. The patient tolerated the procedurewell. The quality of the bowel preparation was good. Findings: The perianal and digital rectal examinations were normal. The cecum appeared normal. Two sessile polyps were found in the proximal descending colon. The polyps were 4 to 6 mm in size. These polyps were removed with a jumbo cold forceps. Resection and retrieval were complete. Internal hemorrhoids were found during retroflexion. The hemorrhoids were small. Electronically signed by Vianey Hart M.D. Vianey Hart M.D. 11/01/2018 10:39:43 AM Number of Addenda: 0 Note Initiated On: 11/01/2018 9:56 AM Procedure Code(s): --- Professional --- 86448, Colonoscopy, flexible; with biopsy, single or multiple Diagnosis Code(s): --- Professional --- Z80.0, Family history of malignant neoplasm of digestive organs K64.8, Other hemorrhoids D12.4, Benign neoplasm of descending colon CPT copyright 2017 [employer]. All rights reserved. The codes documented in this report are preliminary and upon desk clerks supervisor reviewmay be revised to meet current compliance requirements. Recognized by the [employer] for promoting quality in endoscopy Vianey Hart MD ENDOSCOPY PROCEDURES Final Result from Last 3 Months or Most Recently Relevant to Health Maintenance Insurance MEDICARE [facility] MEDICARE SUPPLEMENT MEDICARE [facility] MEDICARE SUPPLEMENT Advance Directives For more information, please contact: [phone] * Full Code (Latest Code Status on File) Date Activated Date Inactivated Comments 11/01/2018 9:11 AM 11/01/2018 3:04 PM * Full Code Date Activated Date Inactivated Comments 11/01/2018 9:11 AM 11/01/2018 9:11 AM Care Teams Traffic Safety Administrator Relationship Specialty Start Date End Date Anita Beck MD [address] [place] [address] PCP - General Family Medicine 11/09/24 04/24/25 Zuly Fofana MD [address] [place] [address] Referring Physician Dermatology 12/30/23 Celeste Talbert DPM [address] [place] [address] [id number] Consulting Physician Foot and Ankle Surg 12/30/23 He Lemus MD [address] [place] [address] Consulting Physician Hematology and Oncology 12/30/23 Sameer Warner MD [address] [place] [address] Consulting Physician Nephrology 12/30/23
== END 2025-03-19 13:02 | disposition home or self-care (01) ==
LOC: ANHBWCIMG 13:07
PROVIDERS: Visit Provider Orthopaedic Surgery
DX: M79.672 Pain in left foot (principal)
CPT/HCPCS: 73630